=== PATIENT | female | born 1945 | race African-American/Black ===

== ENCOUNTER 2019-07-21 00:20 | Emergency (ER) | payer BC, OTHER ==
[~2019-07-21] VITALS: Ht 167.6 cm; Wt 68.1 kg
[2019-07-21 00:27] VITALS: BP 138/97
[2019-07-21 01:09] LABS: HEMATOCRIT 39.5 % (36.0-48.0); HEMOGLOBIN 13.3 g/dL (12.0-16.0); MEAN CORPUSCULAR HEMOGLOBIN 29.9 pg (28.0-32.0); MEAN CORPUSCULAR VOLUME 88.7 fL (81.0-99.0); PLATELET 195 x1000/uL (130-400); RED BLOOD CELL COUNT 4.45 mill/uL (4.2-5.4); RED CELL DISTRIBUTION WIDTH 14.1 % (11.6-14.6)
[2019-07-21 01:16] LABS: CHLORIDE 99 mEq/L (98-107)
[2019-07-21 01:24] LABS: CLARITY URINE CLEAR (CLEAR); COLOR URINE YELLOW (YELLOW); KETONES URINE NEGATIVE (NEGATIVE); LEUKOCYTE ESTERASE URINE NEGATIVE (NEGATIVE); NITRITE URINE NEGATIVE (NEGATIVE); OCCULT BLOOD URINE NEGATIVE (NEGATIVE); PH URINE 7.5 (4.5-8.0); PROTEIN URINE NEGATIVE (NEGATIVE); SPECIFIC GRAVITY URINE 1.002 (1.005-1.030); UROBILINOGEN URINE 0.2 E.U./dL (0.2-1.0)
[2019-07-21] MEDS ORDERED: LEVOTHYROXINE SODIUM 50MCG TABLET PO ONE (02:00)
== END 2019-07-21 02:38 | disposition home or self-care (01) ==
LOC: ER 00:20
DX: E03.9 Hypothyroidism, unspecified (principal); I10 Essential (primary) hypertension
CPT/HCPCS: 36415; 80053; 81003; 84443; 85027; 99283